=== PATIENT | male | born 1945 | race Caucasian/White ===

== ENCOUNTER 2021-08-07 08:07 | Inpatient (IN) ==
[2021-08-07] MEDS ORDERED: POTASSIUM CHLORIDE 20 MEQ TABLET PO PRN (08:10)
[2021-08-07] MEDS ORDERED: ACETAMINOPHEN 325 MG TABLET PO PRN (08:10)
[2021-08-07] MEDS ORDERED: guaiFENesin/DM ER 600-30 MG TABLET PO PRN (08:10)
[2021-08-07] MEDS ORDERED: ALUMINUM/MAGNES/SIMETH MAX STR 30 ML UDCUP PO PRN (08:10)
[2021-08-07] MEDS ORDERED: DOCUSATE SODIUM 100 MG CAPSULE PO PRN (08:10)
[2021-08-07] MEDS ORDERED: hydrALAZINE 20 MG/1 ML VIAL IV PRN (08:10)
[2021-08-07] MEDS ORDERED: traZODone 50 MG TABLET PO PRN (08:10)
[2021-08-07] MEDS ORDERED: ONDANSETRON 4 MG/2 ML VIAL IV PRN (08:10)
[2021-08-07] MEDS ORDERED: diphenhydrAMINE CAP 25 MG CAPSULE PO PRN (08:10)
[2021-08-07] MEDS ORDERED: MAGNESIUM SULF RIDER 2 GM/50 ML PREMIX IV PRN (08:10)
[2021-08-07] MEDS ORDERED: MAGNESIUM SULF RIDER 4 GM/100 ML PREMIX IV PRN (08:10)
[2021-08-07] MEDS ORDERED: SODIUM CHLORIDE 0.9% 1,000 ML IV PRN (08:55)
[2021-08-07 09:51] LABS: Calcium 8.3 MG/DL (8.5-10.1); Osmolality,Calculated 283.4 MOS/KG (273-304); Potassium 3.6 MMOL/L (3.5-5.1)
[2021-08-07 10:28] LABS: Ferritin 4.4 ng/mL (26-388)
[2021-08-07 10:35] LABS: INR 1.1; PT Patient Result 11.9 SECS (10.5-12.0)
[2021-08-07] MEDS: PANTOPRAZOLE 40 MG TABLET PO SCH (11:43)
[2021-08-07 11:57] LABS: Basophils % 0.3 % (0.0-0.8); Eosinophils # 0.1 10*3/uL (0.0-0.87); Hematocrit 18.9 VOL% (42.0-52.0); Immature Granulocytes % 0.5 %; Immature Granulocytes Absolute 0.03 #; Lymphocytes # 0.9 10*3/uL (1.4-4.0); Lymphocytes % 14.4 % (21.2-54.2); Mean Corpuscular HGB Conc 25.9 GM/DL (32-36); Mean Corpuscular Volume 90.4 FL (87-102); Mean Platelet Volume 9.3 FL (9.6-12.0); Monocytes % 13.6 % (1.7-12.7); Neutrophils % 70.2 % (38.7-73.9); Platelet Count 361 T/CUMM (130-400); Red Blood Count 2.09 MC/CUMM (3.8-5.5); Red Cell Distribution Width 16.4 % (9.3-17.3); White Blood Count 6.1 T/CUMM (4-12)
[2021-08-07 12:25] LABS: Hemoglobin 4.9 GM/DL (14.0-18.0)
[2021-08-07 12:36] LABS: Eosinophils 2 % (0-10); Lymphocytes 14 % (20-55); Segmented Neutrophils 76 % (50-85); Total Cells Counted 100
[2021-08-07 12:37] LABS: Anisocytosis 1+; Hypochromia 1+; Microcytosis 1+; Platelet Estimate Adequate; Polychromasia Slight
[2021-08-07] MEDS: INSULIN REGULAR 100 UNIT/ML SUBCUT SCH ×2 (18:40→21:04)
[2021-08-07 19:38] LABS: Alanine Aminotransferase 13 U/L (16-61); Albumin 2.8 G/DL (3.4-5.0); Alkaline Phosphatase 55 U/L (45-117); Aspartate Amino Transferase 7 U/L (0-37); Bilirubin,Indirect 0.3 MG/DL (0.0-1.0); Bilirubin,Total < 0.39 MG/DL (0.20-1.00); Total Protein 6.5 G/DL (6.4-8.2)
[2021-08-07] MEDS: METOPROLOL SUCCINATE XL 25 MG TABLET PO SCH (21:03)
[2021-08-07] MEDS: FERROUS SULFATE 325 MG TABLET PO SCH (21:03)
[2021-08-08 02:35] LABS: Hematocrit 22.8 VOL% (42.0-52.0); Hemoglobin 6.6 GM/DL (14.0-18.0)
[2021-08-08 06:22] LABS: Basophils % 0.4 % (0.0-0.8); Eosinophils # 0.1 10*3/uL (0.0-0.87); Eosinophils % 1.6 % (0.00-10.9); Hemoglobin 6.5 GM/DL (14.0-18.0); Immature Granulocytes % 0.4 %; Immature Granulocytes Absolute 0.03 #; Lymphocytes # 0.9 10*3/uL (1.4-4.0); Lymphocytes % 13.2 % (21.2-54.2); Mean Corpuscular HGB Conc 28.3 GM/DL (32-36); Mean Corpuscular Volume 86.5 FL (87-102); Mean Platelet Volume 9.3 FL (9.6-12.0); Monocytes % 14.1 % (1.7-12.7); Neutrophils % 70.3 % (38.7-73.9); Platelet Count 325 T/CUMM (130-400); Red Blood Count 2.66 MC/CUMM (3.8-5.5); Red Cell Distribution Width 15.9 % (9.3-17.3)
[2021-08-08 06:45] LABS: Albumin 2.5 G/DL (3.4-5.0); Bilirubin,Total 0.5 MG/DL (0.20-1.00); Calcium 8.4 MG/DL (8.5-10.1); Osmolality,Calculated 283.3 MOS/KG (273-304); Potassium 3.5 MMOL/L (3.5-5.1); Total Protein 5.7 G/DL (6.4-8.2)
[2021-08-08] MEDS ORDERED: SODIUM CHLORIDE 0.9% 1,000 ML IV PRN (08:17)
[2021-08-08] MEDS: INSULIN REGULAR 100 UNIT/ML SUBCUT SCH ×5 (10:28→20:21)
[2021-08-08] MEDS: MULTIVITAMIN (CENTRUM) TABLET PO SCH (10:29)
[2021-08-08] MEDS: POTASSIUM CHLORIDE 20 MEQ TABLET PO SCH (10:29)
[2021-08-08] MEDS: PANTOPRAZOLE 40 MG TABLET PO SCH (10:29)
[2021-08-08] MEDS: FERROUS SULFATE 325 MG TABLET PO SCH ×2 (10:29→20:20)
[2021-08-08] MEDS: METOPROLOL SUCCINATE XL 25 MG TABLET PO SCH ×2 (10:29→20:19)
[2021-08-08] MEDS: LACTATED RINGERS 1,000 ML IV SCH (11:02)
[2021-08-08] MEDS ORDERED: MIDAZOLAM 2 MG/2 ML VIAL ONE (11:44)
[2021-08-08] MEDS ORDERED: propofoL 200 MG/20 ML VIAL IV ONE (11:55)
[2021-08-08] MEDS ORDERED: LIDOCAINE 2% 5 ML VIAL ONE (11:55)
[2021-08-08] MEDS ORDERED: ETOMIDATE 20 MG/10 ML VIAL IV ONE (11:55)
[2021-08-08] MEDS ORDERED: BISACODYL 5 MG TABLET PO ONE (12:00)
[2021-08-08] MEDS ORDERED: POLYETHYLENE GLYCOL POWDER 255 GM BOTTLE PO ONE (18:00)
[2021-08-08 20:15] LABS: Hematocrit 32.2 VOL% (42.0-52.0)
[2021-08-08 20:17] LABS: Hemoglobin 9.2 GM/DL (14.0-18.0)
[2021-08-08] MEDS ORDERED: ATORVASTATIN 80 MG TABLET PO SCH (21:00)
[2021-08-09 06:19] LABS: INR 1.1; PT Patient Result 12.3 SECS (10.5-12.0)
[2021-08-09 07:04] LABS: Basophils % 0.6 % (0.0-0.8); Eosinophils # 0.2 10*3/uL (0.0-0.87); Eosinophils % 2.9 % (0.00-10.9); Hematocrit 27.7 VOL% (42.0-52.0); Hemoglobin 8.1 GM/DL (14.0-18.0); Immature Granulocytes % 0.4 %; Immature Granulocytes Absolute 0.03 #; Mean Corpuscular HGB Conc 29.2 GM/DL (32-36); Mean Corpuscular Volume 88.2 FL (87-102); Mean Platelet Volume 9.5 FL (9.6-12.0); Monocytes % 14.6 % (1.7-12.7); Neutrophils % 67.5 % (38.7-73.9); Platelet Count 301 T/CUMM (130-400); Red Blood Count 3.14 MC/CUMM (3.8-5.5); White Blood Count 6.8 T/CUMM (4-12)
[2021-08-09] MEDS ORDERED: LACTATED RINGERS 1,000 ML IV SCH (08:00)
[2021-08-09] MEDS: METOPROLOL SUCCINATE XL 25 MG TABLET PO SCH (08:58)
[2021-08-09] MEDS: PANTOPRAZOLE 40 MG TABLET PO SCH (08:58)
[2021-08-09] MEDS: POTASSIUM CHLORIDE 20 MEQ TABLET PO SCH (08:59)
[2021-08-09] MEDS: MULTIVITAMIN (CENTRUM) TABLET PO SCH (08:59)
[2021-08-09] MEDS ORDERED: LOSARTAN 25 MG TABLET PO SCH (09:00)
[2021-08-09] MEDS: FERROUS SULFATE 325 MG TABLET PO SCH (09:20)
[2021-08-09] MEDS: INSULIN REGULAR 100 UNIT/ML SUBCUT SCH ×2 (09:20→13:34)
[2021-08-09] MEDS: LACTATED RINGERS 1,000 ML IV SCH (11:16)
[2021-08-09] MEDS ORDERED: propofoL 200 MG/20 ML VIAL IV ONE ×2 (12:39→13:04)
[2021-08-09] MEDS ORDERED: ETOMIDATE 20 MG/10 ML VIAL IV ONE (12:39)
[2021-08-09] MEDS ORDERED: LIDOCAINE 2% 5 ML VIAL ONE (12:39)
[2021-08-09 13:43] VITALS: BP 134/81
== END 2021-08-09 16:35 | disposition home or self-care (01) | DRG 392 ==
LOC: INTOOBSV 08:28 → N.TELEN 08:28
PROVIDERS: ADMIT Internal Medicine Cardiovascular Disease; ATTEND Internal Medicine Cardiovascular Disease